=== PATIENT | male | born 1980 | race Caucasian/White ===

== ENCOUNTER 2023-09-05 08:08 | Emergency (ER) | payer SELFPAY ==
[~2023-09-05] VITALS: Ht 190.5 cm; Wt 99.8 kg
[2023-09-05] MEDS ORDERED: Doxycycline Hyclate 100 MG CAP PO ONE (08:40)
[2023-09-05 09:06] LABS: BASO % 0.1 % (0.0-1.0); EOS # 0.1 10*3/uL (0.0-0.4); EOS % 1.9 % (1.0-4.0); LYMPH # 1.5 10*3/uL (1.3-4.4); LYMPH % 20.4 % (27.0-41.0); MEAN CELL VOLUME 90.3 fl (80.0-94.0); MEAN CORPUSCULAR HGB 29.2 pg (27.0-31.0); MEAN CORPUSCULAR HGB CONC 32.3 g/dl (33.0-37.0); MONO # 0.7 10*3/uL (0.1-1.0); MONO % 9.6 % (3.0-9.0); NEUT % 67.6 % (47.0-73.0); PLATELET COUNT AUTOMATED 257 10*3/uL (130-400); RED BLOOD COUNT 4.87 10*6/uL (4.50-5.90); RED CELL DISTRI WIDTH 13.3 % (0-14.5); WHITE BLOOD COUNT 7.4 10*3/uL (4.8-10.8)
[2023-09-05 09:25] LABS: BUN 9 mg/dl (9-23); CHLORIDE 105 mmol/L (98-107); POTASSIUM 3.3 mmol/L (3.4-5.1)
[2023-09-05 09:28] LABS: ETHYL ALCOHOL < 3.0 mg/dl (<3)
[2023-09-05] MEDS ORDERED: POTASSIUM CHLORIDE 20 MEQ TAB PO ONE (09:35)
[2023-09-05] MEDS ORDERED: VIBRAMYCIN HYC100 MG PO (10:06)
== END 2023-09-05 10:20 | disposition home or self-care (01) ==
LOC: ED 08:08
PROVIDERS: Internal Medicine
DX: L03.213 Periorbital cellulitis (principal)